=== PATIENT | female | born 1995 | race Caucasian/White ===

== ENCOUNTER 2021-01-11 19:46 | Emergency (ER) | payer OTHER, SELFPAY ==
[2021-01-11 19:51] VITALS: BP 169/105; PULSE 79; RESP 16; TEMP 36.4; O2SAT 98
[2021-01-11] MEDS: Ketorolac 60 MG/2 ML VIAL IM (20:37)
--- NOTE | 2021-01-11 20:38 | ED.GENADUL_ITS ---
Discharge Plan Disposition Patient Disposition: HOME Condition: Stable Discharge Details Clinical Impression: Back pain Primary Care Provider: None,None ED Provider: Spencer Platt Home Meds and New Rx's Prescriptions: Continued naproxen 500 mg Tablet 500 mg PO BID PRNRF: 0 cyclobenzaprine 5 mg Tablet 5 mg PO QHS PRNRF: 0 Discharge Instructions Instructions: Back Pain (ED) Additional Instructions: At this time I believe your discomfort is musculoskeletal in nature. Continue [id number] anti-inflammatory therapy as directed. Gentle stretching. Cool and/or warm compresses every 2 hours for 20 minutes I have given you a referral to physical therapy. Please watch for new or worsening symptoms and return to the ER for any concerns I would like you to reach out to your primary care provider tomorrow for prompt outpatient reevaluation. Stand Alone Forms: Physical Therapy Referral Discharge Data Discharge Date/Time-TO BE ENTERED AT DEPARTURE: 01/11/21 21:10 Medical Decision Making This is a 25-year-old female who presents with intermittent ongoing back pain, no obvious trauma, but does do repetitive motion and lifting at work. She has been seen for this, she was anti-inflammatories muscle relaxer which has helped although it is now back, now going through her left side because she is compensating on her right. Clinically she appears well, nontoxic. Examination is certainly consistent with musculoskeletal discomfort. There is no midline point tenderness. She is afebrile, and neurologically intact. We discussed options. Patient states that she did do physical therapy for an ankle injury in the past that seem to help. She does have a primary care provider but has not reached out to them yet. I will provide her with a physical therapy referral, a single dose of IM Toradol now, and I will have her continue [id number]-ayg-[id number] anti-inflammatories, gentle stretching, cool and/or warm compresses. Lastly I did recommend that she return to the ER for new or worsening symptoms, otherwise recheck to her primary care provider tomorrow for outpatient reevaluation. She is neurologically intact, no evidence of cauda equina. HPI General Mode of arrival: ambulatory . Date/Time Provider Initiated Documentation: 01/11/21 19:58 . Limitations to Documentation: no limitations . Information obtained by: patient . HPI Narrative: This is a 25-year-old female who denies any significant past medical history presenting for ongoing back pain. Patient reports that she does repetitive motion and heavy lifting at work and has intermittently had back pain for at least a few months. She was seen at the [facility], given anti-inflammatories and Flexeril and at the time the symptoms went away. In the meantime she states that she has subsequently developed occasional symptoms. It has been persistent now on the right side for roughly a week, she has taken Motrin and Flexeril with only moderate relief. She is the pain is moderate, worse with movement. Now because she is compensating she developed left lower back pain as well. She denies any obvious trauma. Denies recent illness. Denies fever, chest pain, abdominal pain, nausea, vomiting, dysuria, hematuria, vaginal bleeding or discharge, dysuria, hematuria, diarrhea or constipation. There is no radiation of symptoms down her legs. She denies numbness, tingling, weakness. She does state that she is sexually active with only with women, no chance of . Related Data Home Medications Medication Instructions Recorded Confirmed cyclobenzaprine 5 mg PO QHS PRN 01/11/21 01/11/21 naproxen 500 mg PO BID PRN 01/11/21 01/11/21 Allergies Allergy/AdvReac Type Severity Reaction Status Date / Time erythromycin base AdvReac Nausea Unverified 01/11/21 19:56 General Stated Complaint: Nk/Back Pain ZHEN: 4 Review of Systems Constitutional Constitutional: Denies fever(s) and Denies weakness Cardiovascular Cardiovascular: Denies chest pain and Denies dyspnea Respiratory Respiratory: Denies cough and Denies dyspnea Gastrointestinal Gastrointestinal: Denies abdominal pain, Denies nausea and Denies vomiting Genitourinary Genitourinary: Denies abnormal vaginal bleeding, Denies hematuria, Denies dysuria and Denies vaginal discharge Musculoskeletal Musculoskeletal: Reports back pain, Denies numbness and Denies tingling Neurologic Neurologic: Denies numbness, Denies tingling and Denies weakness PENDING SALE TO [facility] Social History Smoking/Tobacco Use Status: Current every day Tobacco Type: cigarettes Smoking risk assessment performed?: Yes Alcohol Intake: current Alcohol Intake frequency: a few times a month Substance use type: does not use Current gender identity: female Do you feel safe at home: Yes Do you feel safe in your relationship?: Yes Exam Const General: cooperative, healthy appearing, comfortable and no acute distress Orientation: alert, awake and oriented x3 HENMT Head: normal to inspection, normocephalic and atraumatic Eyes Conjunctivae: conjunctivae normal Sclera: sclerae normal Neck Neck: normal visual inspection, full ROM, trachea midline and supple Resp Effort & Inspection: normal respiratory effort and able to speak in complete sentences Auscultation: clear to auscultation bilaterally Cardio Rate: regular rate Rhythm: regular rhythm GI Palpation: soft and nontender Back/Spine/Pelvis Back: no CVA tenderness and No back tenderness Thoracic/Lumbar Spine: thoracic and lumbar spine normal to inspection and straight leg raise positive (Right side 10 degrees, left side 20 degrees) Pelvis: no pain with anterior-posterior compression and no pain with lateral compression Skin General skin exam: no rashes or lesions noted Neuro General: patient alert, patient awake, moves all extremities and no focal motor deficits Cognition: normal cognition Speech: speech normal Gait: normal gait Motor: muscle tone normal throughout, strength 5/5 throughout and other (Patient able to stand on her heels and toes) Sensory Exam: no sensory deficits noted Extrem General: normal to inspection, full ROM, capillary refill normal, no pedal edema and no calf tenderness Psych Appearance: grossly normal Mental Status: mental status grossly normal Course Vital Signs Vital signs: Vital Signs Temperature 36.4 C L 01/11/21 19:51 Pulse 79 01/11/21 19:51 Respiratory Rate 16 01/11/21 19:51 Blood Pressure 169/105 H 01/11/21 19:51 Pulse Oximetry 98 01/11/21 19:51 Temperature 36.4 C L 01/11/21 19:51 Pulse 79 01/11/21 19:51 Respiratory Rate 16 01/11/21 19:51 Respiratory Effort Non-Labored 01/11/21 19:51 Blood Pressure 169/105 H 01/11/21 19:51 Blood Pressure Position Sitting 01/11/21 19:51 Pulse Oximetry 98 01/11/21 19:51 Oxygen Delivery Method Room Air 01/11/21 19:51 Oxygen Flow Rate 0 01/11/21 19:51
== END 2021-01-11 21:10 | disposition home or self-care (01) ==
PROVIDERS: Emergency Provider Physician Assistant
DX: M54.5 Low back pain (principal)
CPT/HCPCS: 96372; 99284; 99283; J1885

== ENCOUNTER 2021-08-24 07:39 | Emergency (ER) | payer OTHER, SELFPAY ==
[2021-08-24 07:47] VITALS: BP 150/98; PULSE 76; RESP 16; TEMP 36.5; O2SAT 100
--- NOTE | 2021-08-24 07:59 | W.ED.GENAD ---
Discharge Plan Disposition Patient Disposition: HOME Condition: Stable Discharge Details Clinical Impression: Low back pain Primary Care Provider: None,None ED Provider: Cass Thomas Home Meds and New Rx's Prescriptions: New cyclobenzaprine 10 mg tablet 10 mg PO TID PRN (Reason: muscle spasm) Qty: 9 RF: 0 Continued naproxen 500 mg Tablet 500 mg PO BID PRNRF: 0 Discontinued cyclobenzaprine 5 mg Tablet 5 mg PO QHS PRNRF: 0 Discharge Instructions Instructions: Back Pain (ED) Additional Instructions: Please return immediately to the emergency department if you develop any new or worsening symptoms, if your condition does not improve as expected, or if you become otherwise concerned. It is extremely important that you call soon as possible to make an appointment to be seen in follow-up for this visit by your primary care doctor, physical therapy, and orthopedics as we discussed. Stand Alone Forms: Work Release Referrals: Shabbir Gaspar MD [ [facility] STAFF PHYSICIAN] - Marc Wu PT [PHYSICAL THERAPIST] - Discharge Data Discharge Date/Time-TO BE ENTERED AT DEPARTURE: 08/24/21 10:25 Medical Decision Making Arelis Mclaughlin is a 25 y/o woman with h/o PCOS who presented to the emergency department with acute on chronic low back and bilateral hip pain radiating into left leg. On exam Pt is well and non-toxic appearing. There is no spinal TTP. Normal motor and sensory exam of b/l lower extremities. Given chronicity of symptoms without imaging in several years, concern for possible chronic spinal pathology vs lumbar strain vs other. Exam/hx at this time is not c/w cauda equina syndrome, epidural abscess/hematoma, other acute spinal cord pathology, sepsis, acute infectious or vascular etiology of symptoms. Plan for xrays. xrays shows possible DDD, no acute process. Plan for outpt f/u, flexeril as this has worked for her in the past, ortho and PT f/u. I had a lengthy discussion with Patient regarding return to emergency department precautions, home care, and importance of outpatient follow-up. Pt verbalizes understanding of the plan and is amenable. Patient discharged to home with clear plan for outpatient follow-up. All questions were answered. Disposition decision was made weighing the risks and benefits of hospitalization versus outpatient treatment, the risk for further decompensation, and the patient's wishes. Medical Records Medical records reviewed: Yes I reviewed the patient's medical records. Imaging Data Radiologic Study: Attestation: I personally reviewed and interpreted this imaging study as follows: Radiologist's impression: EXAM: XR LUMBAR SPINE COMPLETE CLINICAL HISTORY: low back pain. TECHNIQUE: 2D digital imaging was performed. COMPARISON: No exams were available for comparison FINDINGS: Five views reveal no evidence of fracture, listhesis, or pars defects. All the disc spaces exhibit normal height although there is mild anterior osseous lipping at L2-3 and L3-4 levels. This may be indirect evidence of an element of degenerative disc disease at these levels. Facet joints appear unremarkable. Sacroiliac joints appear unremarkable. No scoliosis. No osseous lesions. IMPRESSION: Subtle findings as described above. No fractures nor listhesis evident. HPI General Mode of arrival: ambulatory. Date/Time Provider Initiated Documentation: 08/24/21 07:48. Limitations to Documentation: no limitations. Information obtained by: patient, RN notes reviewed and old records reviewed. HPI Narrative: Arelis Mclaughlin is a 25-year-old woman with a history of PCOS presenting to emergency department with lower back pain. Patient reports that she has had intermittent lower back and bilateral hip pain for years, since sometime in high school. She denies any specific trauma or inciting event that initiated her back pain. Patient reports that pain is intermittent over time. She reports that she woke up yesterday with pain in her lower back and both hips radiating into her left leg, which is typical for her. No known inciting event for this episode of pain. Patient reports that this pain was more severe than her usual pain, though with the same and location and quality. Last episode of similar pain was approximately 1 month ago. Patient reports that she had difficulty showering last night and getting dressed this morning secondary to pain. She reports that since onset of pain yesterday morning she has had intermittent numbness in her left anterior thigh, not currently occurring. She denies fevers, localized weakness, other numbness, shortness of breath, vomiting, diarrhea, constipation, changes in bowel function, difficulty with urination, changes in urinary function, genital/saddle anesthesia. Patient reports that she is a smoker and has a chronic unchanged cough. She reports rare alcohol use. Patient reports that she has never used IV drugs. Patient reports that she has been prescribed Flexeril in the past which does help with her symptoms. Patient reports that she thinks she has gone to physical therapy for her back pain, but not for some time. Patient states that she does not think she has had any imaging of her back since she was in high school. Related Data Home Medications Medication Instructions Recorded Confirmed naproxen 500 mg PO BID PRN 01/11/21 08/24/21 cyclobenzaprine 10 mg PO TID PRN #9 tab 08/24/21 Previous Rx's Medication Instructions Recorded cyclobenzaprine 10 mg PO TID PRN #9 tab 08/24/21 Allergies Allergy/AdvReac Type Severity Reaction Status Date / Time erythromycin base AdvReac Nausea Unverified 08/24/21 07:51 General Stated Complaint: Nk/Back Pain ZHEN: 4 Review of Systems Narrative: Constitutional: denies fevers Eyes: denies eye pain ENT: denies ear pain, dental pain, sore throat Cardiovascular: denies chest pain Respiratory: denies SOB, reports chronic unchanged cough GI: denies abdominal pain, vomiting, diarrhea : denies flank pain MSK: Reports low back pain, bilateral hip pain, denies other arthralgias, neck pain, myalgias Skin: denies rash Neuro: Reports intermittent numbness left side not currently occurring, denies other numbness including saddle anesthesia, headaches, weakness PFSH Social History Smoking/Tobacco Use Status: Current every day Tobacco Type: cigarettes Smoking risk assessment performed?: Yes Alcohol Intake: current Alcohol Intake frequency: a few times a month Substance use type: does not use Current gender identity: female Do you feel safe at home: Yes Do you feel safe in your relationship?: Yes Exam Narrative Exam Narrative: Constitutional: well and [id number], pleasant, conversing normally HENT: head atraumatic/normocephalic/normal inspection, mucous membranes moist Eyes: conjunctiva normal, sclera normal, pupils 3mm b/l Neck: no stridor, normal ROM, trachea midline Chest: normal inspection Resp: normal work of breathing, speaking in full sentences Cardio: normal rate, normal rhythm Back: normal inspection, no rash, no thoracic or lumbar spinal or paraspinal tenderness to palpation, patient reports tenderness to palpation bilateral hip, reports this is chronic for her, no left leg tenderness to palpation, no posterior calf tenderness to palpation, DP pulses intact and symmetric Skin: warm, dry, normal color, no rash Neuro: alert, not altered, grossly non-focal, motor 5 out of 5 bilateral lower extremities, sensation 5 out of 5 bilateral lower extremities including saddle region, normal tone Ext: no edema Psych: normal mood, normal affect, normal behavior Course Vital Signs Vital signs: Vital Signs Temperature 36.5 C 08/24/21 07:47 Pulse 76 08/24/21 07:47 Respiratory Rate 16 08/24/21 07:47 Blood Pressure 150/98 H 08/24/21 07:47 Pulse Oximetry 100 08/24/21 07:47 Temperature 36.5 C 08/24/21 07:47 Temperature Source Skin 08/24/21 07:47 Pulse 76 08/24/21 07:47 Respiratory Rate 16 08/24/21 07:47 Respiratory Effort Non-Labored 08/24/21 07:47 Blood Pressure 150/98 H 08/24/21 07:47 Blood Pressure Position Sitting 08/24/21 07:47 Pulse Oximetry 100 08/24/21 07:47 Oxygen Delivery Method Room Air 08/24/21 07:47 Oxygen Flow Rate 0 08/24/21 07:47 Pain Level 10 08/24/21 07:54
--- NOTE | 2021-08-24 08:15 | DI.RAD_ITS ---
Exam(s) XR LUMBAR SPINE COMPLETE EXAM: XR LUMBAR SPINE COMPLETE CLINICAL HISTORY: low back pain. TECHNIQUE: 2D digital imaging was performed. COMPARISON: No exams were available for comparison FINDINGS: Five views reveal no evidence of fracture, listhesis, or pars defects. All the disc spaces exhibit n ormal height although there is mild anterior osseous lipping at L2-3 and L3-4 levels. This may be in direct evidence of an element of degenerative disc disease at these levels. Facet joints appear unre markable. Sacroiliac joints appear unremarkable. No scoliosis. No osseous lesions. IMPRESSION: Subtle findings as described above. No fractures nor listhesis evident. DATA REPOSITORY: RADIATION DOSE DELIVERED:
[2021-08-24 10:30] VITALS: BP 142/87; PULSE 75; RESP 16; TEMP 36.5; O2SAT 100
--- NOTE | 2021-08-25 16:03 | PDOC.ERCMPRO ---
- If Service Date Differs Date of service: 08/25/21 Time of Service: 16:03 Care Management Progress Note Arelis is seen in the ED for neck, back and hip pain. She calls the ED today to advise that [facility] does not treat back pain. Arelis requests that a referral be sent to [facility]. CM faxed a referral to [facility] on 08/25/21 at fax no. [phone] at patient's request.
== END 2021-08-24 10:25 | disposition home or self-care (01) ==
PROVIDERS: Emergency Provider Student in an Organized Health Care Education/Training Program
DX: M54.5 Low back pain (principal); G89.29 Other chronic pain; R20.0 Anesthesia of skin
CPT/HCPCS: 81025; 99283; 72110; 81003

== ENCOUNTER 2022-06-07 15:46 | Outpatient (REF) | payer OTHER, SELFPAY ==
[2022-06-07 16:27] LABS: HCT 41.8 % (36.0-46.0); HGB 14.2 g/dL (11.2-15.7); MCH 28.6 pg (27.0-33.0); MCV 84 fL (80-95); MPV 9.9 fL (8.0-11.0); Platelet Count 239 10^3/uL (130-400); RBC 4.96 10^6/uL (3.93-5.22); RDW 12.3 % (11.7-14.6); RDW-SD 36.8 fL
[2022-06-07 16:44] LABS: Hemoglobin A1C 5.4 % (<5.7)
[2022-06-07 16:54] LABS: ALT 50 U/L (14-59); AST 22 U/L (15-37); Albumin 3.5 g/dL (3.4-5.0); Alkaline Phosphatase 64 U/L (46-116); Anion Gap 12.5 mmol/L (3-11); BUN 11 mg/dL (7-18); Bilirubin, Total 0.3 mg/dL (0.2-1.0); CO2 25.5 mmol/L (21.0-32.0); CREATININE 0.6 mg/dL (0.55-1.02); Calcium 8.2 mg/dL (8.5-10.1); Calculated LDL 98 mg/dL (<100); Chloride 107 mmol/L (98-107); Cholesterol 154 mg/dL (<200); Ferritin 46 ng/mL (8-252); Glucose 106 mg/dL (74-106); HDL Cholesterol 34 mg/dL (40-60); Potassium 4.2 mmol/L (3.5-5.1); Sodium 145 mmol/L (136-145); Total Protein 6.2 g/dL (6.4-8.2); Triglyceride 110 mg/dL (<150)
== END 2022-06-07 15:47 | disposition home or self-care (01) ==
LOC: NCHCN 15:46
PROVIDERS: Visit Provider Physician Assistant
DX: G25.81 Restless legs syndrome (principal)
CPT/HCPCS: 80053; 80061; 85027; 82728; 83036

== ENCOUNTER 2022-06-17 16:38 | Outpatient (REF) | payer MEDICAID, SELFPAY ==
--- NOTE | 2022-06-17 16:40 | PAPFT_PTH ---
PATIENT: Arelis Mclaughlin LOC: [facility] U#:[id number] AGE/SX: 26/F ROOM: RE06/17/[address]: Kathi Hernandez MD : 1995 BED: DIS: 06/17/2022 SPEC #: [id number] RECD: 06/17/22 17:58 STATUS: TRINO REQ #: [id number] SHANE: 06/17/22 16:[address]: Kathi Hernandez DEPT: [facility] Cytology RECD BY: Angelika Senior ENTERED: 06/17/22 17:59 SP TYPE: PAPFT JOANNE DR: None Tissues: 1 - CX/ENDOCX FOR PAP SMEARS Procedures: PAP THIN PREP/[facility] Screening Comments: [id number]
== END 2022-06-17 16:39 | disposition home or self-care (01) ==
LOC: LBN 16:38
PROVIDERS: Visit Provider Obstetrics & Gynecology
DX: Z12.4 Encounter for screening for malignant neoplasm of cervix (principal); R87.612 Low grade squamous intraepithelial lesion on cytologic smear of cervix (LGSIL)
CPT/HCPCS: 88142

== ENCOUNTER 2022-07-05 04:04 | Outpatient (CLI) | payer MEDICAID, SELFPAY ==
[2022-07-05 16:08] LABS: TSH (W/Ref FT4) 3.14 uIU/mL (0.36-3.74)
[2022-07-05 22:33] LABS: Estradiol 36 pg/mL (See Note)
[2022-07-05 23:27] LABS: FSH 6.1 mIU/mL (See Note)
[2022-07-14 13:16] LABS: Testosterone, Free 0.98 ng/dL (<0.13-1.06); Testosterone, Total 35 ng/dL (8-60)
== END 2022-07-05 04:05 | disposition home or self-care (01) ==
LOC: LBO 04:04
PROVIDERS: Visit Provider Obstetrics & Gynecology
DX: N91.5 Oligomenorrhea, unspecified (principal); E28.2 Polycystic ovarian syndrome; R10.2 Pelvic and perineal pain
CPT/HCPCS: 36415; 84402; 84403; 82670; 83001; 84146; 84443

== ENCOUNTER 2022-07-22 10:08 | Emergency (ER) | payer MEDICAID, SELFPAY ==
[2022-07-22 10:13] VITALS: BP 132/71; PULSE 74; RESP 18; TEMP 36.7; O2SAT 97
--- NOTE | 2022-07-22 10:15 | DI.CT_ITS ---
Exam(s) CT ABDOMEN PELVIS W EXAM: CT ABDOMEN PELVIS W INDICATION: RLQ abd pain. COMPARISON: No exams were available for comparison TECHNIQUE: FINDINGS: CT examination of the abdomen and pelvis was performed with intravenous infusion of 100 cc of Omnipaq ue 350. Images obtained through the lung bases are unremarkable. The liver is unremarkable in appearance. Gallbladder and bile ducts are CT normal. Pancreas appears normal. Spleen is unremarkable in appearance. Adrenals appear normal. The kidneys are unremarkable with no evidence of hydronephrosis, nephrolithiasis, or renal mass.. Ur inary bladder unremarkable. Abdominal aorta is of normal diameter and no major vascular abnormality is seen. No abdominal wall hernia. No abdominal or pelvic adenopathy. [employer] structures appear intact. Appendix is normal. No evidence of diverticulitis or bowel obstruction. IMPRESSION: Negative CT examination of the abdomen and pelvis. RADIATION DOSE DELIVERED: 1,721.42mGy.cm Total DLP 1,721.42mGy.cm Total DLP !Error CTDIvol RADIATION OPTIMIZATION: All CT scans at this facility use at least one of these dose optimization te chniques: automated exposure control; mA and/or kV adjustment per patient size (includes targeted exa ms where dose is matched to clinical indication); or iterative reconstruction.
--- NOTE | 2022-07-22 10:18 | W.ED.GENAD ---
Discharge Plan Disposition Patient Disposition: HOME Condition: Stable Discharge Details Clinical Impression: Abdominal pain Primary Care Provider: None,None ED Provider: Kenia Bernabe Home Meds and New Rx's Prescriptions: Continued omeprazole 20 mg capsule,delayed release(DR/EC) 20 mg PO DAILY ropinirole 0.5 mg tablet 0.5 mg PO DAILY medroxyprogesterone [Provera] 5 mg tablet 5 mg PO BID Qty: 14 0RF naproxen 500 mg Tablet 500 mg PO BID PRN cyclobenzaprine 10 mg tablet 10 mg PO TID PRN (Reason: muscle spasm) Qty: 9 0RF Discharge Instructions Instructions: Abdominal Pain (ED) Additional Instructions: CT at this time shows no evidence for appendicitis. Your labs are all within normal limits. No evidence for urinary tract infection. Follow up with primary care provider in 3-5 days. Return to ED sooner if any worsening or concerns. Increase oral fluids. Please take Tylenol or Ibuprofen with food every 4-6 hours as needed for pain and swelling. Medical Decision Making 26 year old female presents toED with Chief complaint of RLQ abd pain. She reports it began 2 days ago has somewhat gone away and began again last night which is worsening. She describes it as sharp radiates to the mid abdomen. Labs ordered, and Ct abd pelvis to r/o Appy. Received CT report from Dr. Infante negative for appendicitis no acute abnormality. This text was generated using [employer] system, please disregard any oddities of phrase or misspellings. Imaging Data Radiologic Study: Imaging: CT Scan Radiologist's impression: EXAM: CT ABDOMEN PELVIS W INDICATION: RLQ abd pain. COMPARISON: No exams were available for comparison TECHNIQUE: FINDINGS: CT examination of the abdomen and pelvis was performed with intravenous infusion of 100 cc of Omnipaque 350. Images obtained through the lung bases are unremarkable. The liver is unremarkable in appearance. Gallbladder and bile ducts are CT normal. Pancreas appears normal. Spleen is unremarkable in appearance. Adrenals appear normal. The kidneys are unremarkable with no evidence of hydronephrosis, nephrolithiasis, or renal mass.. Urinary bladder unremarkable. Abdominal aorta is of normal diameter and no major vascular abnormality is seen. No abdominal wall hernia. No abdominal or pelvic adenopathy. CHILD PSYCHOLOGIST structures appear intact. Appendix is normal. No evidence of diverticulitis or bowel obstruction. IMPRESSION: Negative CT examination of the abdomen and pelvis. Lab Data Lab results reviewed: Yes I reviewed the patient's lab results. Labs: Laboratory Tests Range/Units 07/22/22 07/22/22 07/22/22 10:34 10:34 10:55 WBC (4.4-10.8) 10^3/uL 6.13 RBC (3.93-5.22) 10^6/uL 4.72 Hgb (11.2-15.7) g/dL 13.3 Hct (36.0-46.0) % 39.2 MCV (80-95) fL 83 MCH (27.0-33.0) pg 28.2 MCHC (32.0-36.0) % 33.9 RDW (11.7-14.6) % 12.3 Plt Count (130-400) 10^3/uL 220 MPV (8.0-11.0) fL 9.0 Immature Gran % 0.5 Neutrophils % 47.3 Lymphocytes % 42.6 Monocytes % 7.8 Eosinophils % 1.5 Basophils % 0.3 Nucleated RBC % (0.0-0.3) % 0.0 Absolute Neutrophils (1.2-6.7) 10^3/uL 2.90 Absolute Lymphocytes (1.2-3.4) 10^3/uL 2.61 Absolute Monocytes (0.1-0.8) 10^3/uL 0.48 Absolute Eosinophils (0.0-0.7) 10^3/uL 0.09 Absolute Basophils (0.0-0.2) 10^3/uL 0.02 Sodium (136-145) mmol/L 143 Potassium (3.5-5.1) mmol/L 3.9 Chloride (98-107) mmol/L 108 H Carbon Dioxide (21.0-32.0) mmol/L 28.0 Anion Gap (3-11) mmol/L 7.0 BUN (7-18) mg/dL 14 Creatinine (0.55-1.02) mg/dL 0.7 Estimated GFR/1.73 m2 (mL/min/1.73m2) >= 60.00 Glucose (74-106) mg/dL 100 Calcium (8.5-10.1) mg/dL 8.5 Magnesium (1.8-2.4) mg/dL 1.9 Total Bilirubin (0.2-1.0) mg/dL 0.5 AST (15-37) U/L 29 ALT (14-59) U/L 56 Alkaline Phosphatase (46-116) U/L 66 Total Protein (6.4-8.2) g/dL 6.9 Albumin (3.4-5.0) g/dL 3.8 Lipase (73-393) U/L 82 Urine Color (Yellow) Yellow Urine Clarity (Clear) Clear Urine pH (5-8) 5.5 Ur Specific [place] (1.005-1.025) >= 1.030 H Urine Protein (Negative) mg/dL Negative Urine Ketones (Negative) mg/dL Negative Urine Blood (Negative) Negative Urine Nitrite (Negative) Negative Urine Bilirubin (Negative) Negative Urine Urobilinogen (Up TO 0.2) EU/dL 0.2 Ur Leukocyte Esterase (Negative) Negative Urine Glucose (Negative) mg/dL Negative HPI General Mode of arrival: ambulatory. Date/Time Provider Initiated Documentation: 07/22/22 10:15. Limitations to Documentation: no limitations. Information obtained by: patient, RN notes reviewed and old records reviewed. HPI Narrative: 26 year old female presents toED with Chief complaint of RLQ abd pain. She reports it began 2 days ago has somewhat gone away and began again last night which is worsening. She describes it as sharp radiates to the mid abdomen. She denies any history of abdominal surgeries. She does have a past medical history of PCOS. She is denying any possibility of however she is not on any control. Last menstrual period was in February which she reports is normal for her. She is not taking any medications prior to arrival. Related Data Home Medications Medication Instructions Recorded Confirmed naproxen 500 mg tablet 500 mg PO BID PRN 01/11/21 07/22/22 cyclobenzaprine 10 mg tablet 10 mg PO TID PRN muscle spasm #9 08/24/21 07/22/22 tabs omeprazole 20 mg capsule,delayed 20 mg PO DAILY 06/17/22 07/22/22 release ropinirole 0.5 mg tablet 0.5 mg PO DAILY 06/17/22 07/22/22 medroxyprogesterone 5 mg tablet 5 mg PO BID #14 tabs 07/21/22 07/22/22 (Provera) Previous Rx's Medication Instructions Recorded cyclobenzaprine 10 mg tablet 10 mg PO TID PRN muscle spasm #9 08/24/21 tabs medroxyprogesterone 5 mg tablet 5 mg PO BID #14 tabs 07/21/22 (Provera) Allergies Allergy/AdvReac Type Severity Reaction Status Date / Time erythromycin base AdvReac Nausea Unverified 07/22/22 10:16 General Stated Complaint: Abd Prob ZHEN: 3 Review of Systems All systems reviewed & are unremarkable except as noted in HPI and below Gastrointestinal Gastrointestinal: Reports abdominal pain, Denies change in stool character, Denies diarrhea, Reports nausea and Denies vomiting Genitourinary Genitourinary: Denies dysuria PFSH All Active Problems (Updated 07/22/22 @ 11:22 by Kenia Bernabe NP) Abdominal pain (Acute) Pelvic pain (Acute) PCOS (polycystic ovarian syndrome) (Acute) Oligomenorrhea (Acute) Low back pain (Acute) Medical History Joint problem LGSIL on Pap smear of cervix benign colp. Repeat pap 2022 Family History Father , 2014 Blood clotting disorder Had multiple PEs, had DM but had quit smoking at the time. Other Diabetes Hypertension Social History Smoking/Tobacco Use Status: Current every day Tobacco Type: e-cigarettes Smoking risk assessment performed?: Yes Alcohol Intake: current Alcohol Intake frequency: a few times a month Drug use: Occasionally Substance use type: marijuana Details: patient uses Vape Current gender identity: female Do you feel safe at home: Yes Do you feel safe in your relationship?: Yes Female Reproductive History Menstrual Age of Menarche: 14 Duration of menses: 6-7 days control method: none and other (female partner only) History History 0 Para Hx # Term Pregnancies Multiple births Hx # Pregnancies Ectopic pregnancies AB induced Hx Number of Living Children AB spontaneous Exam Narrative Exam Narrative: Constitutional: Alert and oriented x3. Appears stated age. Obese body habitus. Head: Normocephalic, no trauma. Eyes: Pupils PERRL, Red reflex noted, EOM's intact. Eyelids symmetrical without lesions, discharge, or swelling. ENT: Bilateral TM's WNL, External ear normal to inspection, no mastoid TTP, swelling, or erythema, Nasal turbinates WNL, no nasal discharge. Normal dentition, Posterior pharynx WNL, no exudate. Chest: RRR, Normal S1, S2, distal pulses intact. Resp: Lungs clear to auscultation bilaterally, no wheezes, rales, or rhonchi. Abdomen: Soft, non-distended, Normoactive bowel sounds all 4 quads. Musculoskeletal: Normal gait, 5/5 strength to all four extremities. Skin: No suspicious rashes or lesions. Capillary refill less than 2 sec. Neurologic: Cranial nerves II-XII intact. Alert and oriented x 3. Motor: No deficits noted. Sensory: Intact bilaterally all 4 extremities. Reflexes: DTR's intact bilaterally.. Hematologic/Lymphatic: No ecchymosis, no lymphadenopathy. Course Vital Signs Vital signs: Vital Signs Temperature 36.7 C 07/22/22 10:13 Pulse 74 07/22/22 10:13 Respiratory Rate 18 07/22/22 10:13 Blood Pressure 132/71 07/22/22 10:13 Pulse Oximetry 97 07/22/22 10:13 Temperature 36.7 C 07/22/22 10:13 Pulse 74 07/22/22 10:13 Respiratory Rate 18 07/22/22 10:13 Blood Pressure 132/71 07/22/22 10:13 Blood Pressure Position Sitting 07/22/22 10:13 Pulse Oximetry 97 07/22/22 10:13 Oxygen Delivery Method Room Air 07/22/22 10:13 Oxygen Flow Rate 0 07/22/22 10:13 Pain Level 9 07/22/22 10:13
[2022-07-22] MEDS: Normal Saline 1,000 ML 1000 ML IV (10:39)
[2022-07-22 10:41] LABS: Abs Immature Grans 0.03 10^3/uL (0.0-0.06); Absolute Basophil Count 0.02 10^3/uL (0.0-0.2); Absolute Eosinophil Count 0.09 10^3/uL (0.0-0.7); Absolute Lymphocyte Count 2.61 10^3/uL (1.2-3.4); Absolute Monocyte Count 0.48 10^3/uL (0.1-0.8); Basophils % 0.3; Eosinophils % 1.5; HCT 39.2 % (36.0-46.0); HGB 13.3 g/dL (11.2-15.7); Immature Grans % 0.5; Lymphocytes % 42.6; MCH 28.2 pg (27.0-33.0); MCHC 33.9 % (32.0-36.0); MCV 83 fL (80-95); Monocytes % 7.8; Neutrophils % 47.3; Platelet Count 220 10^3/uL (130-400); RBC 4.72 10^6/uL (3.93-5.22); RDW 12.3 % (11.7-14.6); RDW-SD 37.3 fL; WBC 6.13 10^3/uL (4.4-10.8)
[2022-07-22 11:02] LABS: Bilirubin Negative (Negative); Blood Negative (Negative); Clarity Clear (Clear); Glucose Negative (Negative); Ketones Negative (Negative); Leukocyte Esterase Negative (Negative); Nitrite Negative (Negative); Specific Gravity >= 1.030 (1.005-1.025); Urobilinogen 0.2 EU/dL (Up TO 0.2); pH 5.5 (5-8)
[2022-07-22 11:09] LABS: ALT 56 U/L (14-59); AST 29 U/L (15-37); Albumin 3.8 g/dL (3.4-5.0); Alkaline Phosphatase 66 U/L (46-116); BUN 14 mg/dL (7-18); Bilirubin, Total 0.5 mg/dL (0.2-1.0); CREATININE 0.7 mg/dL (0.55-1.02); Calcium 8.5 mg/dL (8.5-10.1); Chloride 108 mmol/L (98-107); Glucose 100 mg/dL (74-106); Lipase 82 U/L (73-393); Magnesium 1.9 mg/dL (1.8-2.4); Potassium 3.9 mmol/L (3.5-5.1); Sodium 143 mmol/L (136-145); Total Protein 6.9 g/dL (6.4-8.2)
[2022-07-22] MEDS: Omnipaque 350 MG/ML 100 ML BTL IV (11:15)
== END 2022-07-22 11:36 | disposition home or self-care (01) ==
PROVIDERS: Emergency Provider Registered Nurse Emergency
DX: R10.31 Right lower quadrant pain (principal); E66.9 Obesity, unspecified; F17.290 Nicotine dependence, other tobacco product, uncomplicated
CPT/HCPCS: 36415; 80053; 83690; 96360; 99285; 74177; 81003; 83735; 85025; 99284; J3490

== ENCOUNTER 2022-07-27 15:01 | Outpatient (CLI) | payer MEDICAID, SELFPAY ==
--- NOTE | 2022-07-27 15:00 | DI.RAD_ITS ---
Exam(s) XR KNEE LT 3V AP,LAT,VIC EXAM: XR KNEE LT 3V AP,LAT,VIC CLINICAL HISTORY: KNEE PAIN TECHNIQUE: COMPARISON: No exams were available for comparison FINDINGS: Three views were obtained. Cartilaginous joint spaces appear well maintained. No bony or soft tissu e abnormality seen. IMPRESSION: RADIATION DOSE DELIVERED: Total DLP
== END 2022-07-27 15:02 | disposition home or self-care (01) ==
LOC: DIORS 15:01
PROVIDERS: PCP Physician Assistant; Referring Provider Physician Assistant; Visit Provider Student in an Organized Health Care Education/Training Program
DX: M25.562 Pain in left knee (principal)
CPT/HCPCS: 73562